=== PATIENT | male | born 1945 | race African-American/Black ===

== ENCOUNTER → 2017-03-29 | Outpatient (CLI) | payer OTHER ==
[~2017-03-29] MED LIST: CENTRUM SILVER1 EAC2 PO; CHLOROPHYLL 3 MG3 MG PO; CRESTOR10 MG PO; LIDODERM 5%1 PATC1 TRANSDERM; LOSARTAN-HCTZ1 EAC1 PO; NORCO 5-325 TA1 EACH PO
[2017-03-29 14:16] LABS: CALCIUM 8.9 mg/dL (8.5-10.1); CREATININE 1.4 mg/dL (0.7-1.3); POTASSIUM 3.7 mmol/L (3.5-5.1)
== END ==
LOC: CAT 13:46 → LABMALL 13:46
PROVIDERS: Internal Medicine Cardiovascular Disease
DX: I71.4 Abdominal aortic aneurysm, without rupture (principal); I71.2 Thoracic aortic aneurysm, without rupture; I74.5 Embolism and thrombosis of iliac artery; Z95.820 Peripheral vascular angioplasty status with implants and grafts

== ENCOUNTER → 2019-12-03 | Outpatient (CLI) | payer OTHER | LOC: SJCVC 15:04 | DX: I11.9 Hypertensive heart disease without heart failure (principal); I71.4 Abdominal aortic aneurysm, without rupture; I73.9 Peripheral vascular disease, unspecified; I71.2 Thoracic aortic aneurysm, without rupture; Z98.890 Other specified postprocedural states; Z96.651 Presence of right artificial knee joint; Z95.5 Presence of coronary angioplasty implant and graft; Z79.899 Other long term (current) drug therapy; Z86.79 Personal history of other diseases of the circulatory system ==

== ENCOUNTER → 2020-07-19 | Outpatient (CLI) | payer OTHER | LOC: SJCVC 10:48 | PROVIDERS: ATTEND Internal Medicine Cardiovascular Disease | DX: R94.31 Abnormal electrocardiogram [ECG] [EKG] (principal); I10 Essential (primary) hypertension; I25.10 Atherosclerotic heart disease of native coronary artery without angina pectoris; E78.00 Pure hypercholesterolemia, unspecified; I73.9 Peripheral vascular disease, unspecified; I71.4 Abdominal aortic aneurysm, without rupture; I71.2 Thoracic aortic aneurysm, without rupture; Z01.810 Encounter for preprocedural cardiovascular examination; Z98.890 Other specified postprocedural states; Z86.79 Personal history of other diseases of the circulatory system; Z79.899 Other long term (current) drug therapy ==

== ENCOUNTER → 2020-08-12 | Outpatient (CLI) | payer OTHER | LOC: SJCVCIMAG 07:02 | PROVIDERS: ATTEND Internal Medicine Cardiovascular Disease | DX: Z01.810 Encounter for preprocedural cardiovascular examination (principal); I25.10 Atherosclerotic heart disease of native coronary artery without angina pectoris; I10 Essential (primary) hypertension; E78.00 Pure hypercholesterolemia, unspecified; Z98.890 Other specified postprocedural states; Z79.899 Other long term (current) drug therapy; Z86.79 Personal history of other diseases of the circulatory system ==

== ENCOUNTER → 2021-03-29 | Outpatient (CLI) | payer OTHER ==
[~2021-03-29] MED LIST changes: +ASA81BEC PO; +CETIRIZINE HCL10 MG PO; +FLUTICASONE PRO16 GM NASAL; +OLMESARTAN MEDOX5 MG PO; +SINGULAIR 10 MG10 M1 PO
[2021-03-29 09:54] LABS: URINE BILIRUBIN NEGATIVE (Negative); URINE BLOOD NEGATIVE (Negative); URINE CLARITY CLEAR; URINE COLOR YELLOW; URINE GLUCOSE-RANDOM* NEGATIVE (Negative); URINE KETONES 1+ (Negative); URINE LEUKOCYTES-REFLEX NEGATIVE (Negative); URINE NITRITE-REFLEX NEGATIVE (Negative); URINE PROTEIN (DIPSTICK) NEGATIVE (Negative); URINE SPECIFIC GRAVITY 1.015 (1.005-1.035); URINE UROBILINOGEN 0.2 E.U./dl (0.2-1.0)
[2021-03-29 09:56] LABS: HEMATOCRIT 40.1 % (42.0-52.0); HEMOGLOBIN 13.2 gm/dL (14.0-18.0); MCH 32.7 pg (26.0-34.0); MCV 99.1 fL (80.0-100.0); RBC 4.05 mil/uL (4.50-6.00); RDW 13.9 % (10.5-14.5)
[2021-03-29 10:09] LABS: ALBUMIN 3.7 g/dL (3.4-5.0); CALCIUM 8.4 mg/dL (8.5-10.1); CREATININE 1.3 mg/dL (0.7-1.3); INR 1.04; POTASSIUM 4.5 mmol/L (3.5-5.1); PROTIME 11.3 Seconds (10.5-12.1)
== END ==
LOC: PAC 08:35
PROVIDERS: ATTEND Orthopaedic Surgery
DX: Z01.812 Encounter for preprocedural laboratory examination (principal); Z96.651 Presence of right artificial knee joint

== ENCOUNTER 2021-04-06 10:31 | Inpatient (IN) | payer OTHER ==
[~2021-04-06] VITALS: Ht 182.9 cm; Wt 77.6 kg
[2021-04-06 11:31] VITALS: BP 147/78
--- NOTE | 2021-04-06 17:50 | NUR ---
ASSUMED CARE OF PT AT 1630 THIS AFTERNOON FROM PACU AFTER REPAIR OF RIGHT KNEE. PT HAS DECLAN DRESSING WITH AARON WRAP AND POLAR PK. PT IS A/OX4 WITH NO DEFECITS. SKIN INTACT W/D/ATR, NO TENTING, CR<3SECX4, PT HAS NERVE BLOCK IN PLACE AND WILL NEED TO ASK FOR ASST TO USE THE BEDSIDE COMODE. IV, LEFT FA SL. ASSESSMENTS CHARTED AND OTHERWISE UNREMARKABLE. CALL LIGHT AND OTHER NEEDS ARE WITHIN REACH. MEDS AND TX GIVEN NEEDED AND SCHEDULED.
[2021-04-06 19:31] VITALS: BP 160/82
[2021-04-07 04:18] VITALS: BP 140/74
--- NOTE | 2021-04-07 05:50 | NUR ---
RECEIVED CARE OF THIS PATIENT AT 1900. PATIENT ALERT AND ORIENTED X4. PATIENT REMAINS IN BED, EXPLAINED TO PATIENT ABOUT HOW HIS LEG COULD GIVE AND HE WOIULD END UP ON THE FLOOR D/O THE BLOCK HE RECEIVED DURING SURGERY. IV IN LFA PATENT WITH FLUIDS INFUSING. DRESSING ON R KNEE INTACT. PATIENT ALSO HAS TEDS, SCD'S AND POLAR ICE. C/O PAIN, MED GIVEN. SLEPT OFF AND ON DURING NIGHT.
[2021-04-07 07:38] VITALS: BP 133/66
[2021-04-07 11:08] VITALS: BP 133/66
--- NOTE | 2021-04-07 11:15 | NUR ---
ASSUMED PT CARE THIS AM. PT IS ALERT & ORIENTED X4. PT HAS IV SITE ON L FA. PT TOLERATED DIET AND MEDICATION WELL DURING THE SHIFT. PT IS ON ROOM AIR. PT HAS DECLAN DRESSING, BILATERAL THIGH HIGH KIRBY H[employer]ES. SCD AND POLAR CARE. NO C/O OF NAUSEA AND VOMITING THIS AM. PT DID WELL WITH PHYSICAL THERAPY THIS AM. EDUCATED AND INFORMED PT ABOUT DISCHARGE INSTRUCTION SUCH MEDICATION AND WHEN TO FOLLOW UP WITH DR. PT IS CURRENTLY SITTING ON THE CHAIR WITH ALARM ON. WILL CONTINUE TO MONITOR PT. FOLLOW POC.
--- NOTE | 2021-04-07 11:33 | O ---
[facility] [place] [address] OPERATIVE REPORT Name: JUNIOR HILL Room #: 439-P ADM IN M.R.#: [id number] Admission: 04/06/21 Attend Phys: Ruy Leary MD Discharge: Date of : 47 Report #: [id number] THIS REPORT FOR: cc: Ha Mancia MD, Logan F. MD Abraham, Scott M. MD ~ DOC #: [id number] Ruy Leary MD DATE OF SERVICE: 04/06/2021 PREOPERATIVE DIAGNOSIS: Aseptic loosening, right total knee arthroplasty. POSTOPERATIVE DIAGNOSIS: Aseptic loosening, right total knee arthroplasty. PROCEDURE: Revision right total knee arthroplasty, all components. SURGEON: Ruy Leary MD. BOX WORKER: Esther Menchaca PA-C INDICATIONS FOR BOX WORKER: Throughout the case extensive retraction, manipulation of the knee was required. This was afforded to me by my floor covering printer assistant. ANESTHESIA: LMA with adductor canal block. IMPLANTS: [employer]hew size 5 revision tibial tray with a 4 mm offset retail merchandising coordinator and a 20 x 160 stem, size 5 Revision Legion femoral component with 5 mm medial and lateral distal augments as well as a 4 mm offset retail merchandising coordinator with an 18 x 160 stem, size 18 constrained polyethylene and size 35 patella. TOURNIQUET TIME: 105 minutes.. ESTIMATED BLOOD LOSS: 50 mL. COMPLICATIONS: None. SPECIMENS: None. CONDITION UPON LEAVING OPERATING ROOM: Stable. INDICATIONS FOR PROCEDURE: The patient is a 75-year-old gentleman who underwent right total knee arthroplasty many years ago. He has had progressive pain in his knee and workup for infection was negative. X-ray showed lucency under the tibial component and bone scan confirmed likely aseptic loosening of the total knee arthroplasty. After discussion with him, he elected for revision right total knee arthroplasty. [address] [address] OPERATIVE REPORT Name: JUNIOR HILL Room #: 439-P [facility] IN [facility]#: [id number] Admission: 04/06/21 Attend Phys: Ruy Leary MD Discharge: Date of : 46 Report #: [id number] DESCRIPTION OF PROCEDURE: Risks, benefits, alternatives, complications were discussed in detail with the patient including but not limited to risk of anesthesia, risk of damage to nerves, arteries, blood vessels, risk for infection, bleeding, risk for continued knee pain, need for reoperation. Informed consent was obtained from the patient. Right knee was appropriately marked in the preoperative holding area. IV Ancef was given for preoperative antibiotics. He was brought to the operating room and placed in the supine position on the operating room table. LMA anesthesia was induced without complication. Tourniquet was placed on the right thigh. Right lower extremity was prepped and draped in normal sterile fashion. Timeout was performed properly identifying the patient and procedure as well as instrumentation. All in the operating room are in agreement. Right lower extremity was exsanguinated, tourniquet was inflated. Tourniquet time was 105 minutes. The previous scar was used and this was opened with a 10 blade through the skin. Dissection was taken down to the fascia and deep flaps were developed medially and laterally. Fresh 10-blade ____ synovial fluid were taken. Several samples of synovium were then excised sharply and sent ____ no PMNs per high power field. Polyethylene was removed from the tibial baseplate and the femoral component was dissected using osteotomes. This was removed fairly easily showing suspicion for aseptic loosening. Attention was turned to the tibial component. Tibial component was removed very easily with osteotomes and this came out clean from the cement mantle with all the cement remaining with the tibial bone itself. After this, the remaining cement was removed from the bone and the canals were subsequently reamed and was then pinned in place and tibial cleanup cut was made. Tibia was sized to a size 5. Size 5 tibial trial fit best with a 4 mm offset retail merchandising coordinator in the 3 o'clock position. After this tibia was prepared for the stem and the retail merchandising coordinator and the tibial trial was placed. Attention was turned to the femur. A cleanup cut was made with the distal femoral cutting block and the femur found best fit to be a size 5. Size 5 block was placed and anterior , 4 mm retail merchandising coordinator in the 6 o'clock position. This was placed and extension gaps were then checked and found to be loose in extension with good stability in flexion, 5 mm distal femoral wedges were placed and this balanced the knee well. The previous patellar component was then removed with the oscillating saw. A new patellar trial size 35 mm was placed. Knee was taken through range of motion, found to be stable, found to have good patellar tracking with an 18 mm polyethylene. Trial components were removed. Bony ends were thoroughly irrigated with normal saline. Final components were built on the back table and cemented in place using standard cementation techniques. While the cement cured, a periarticular injection consisting of morphine, ropivacaine, epinephrine, Toradol was placed around the knee joint capsule. After the cement cured, the tourniquet was deflated. Hemostasis was obtained with Bovie cautery. A final size 18 constrained polyethylene was placed. A gram of vancomycin was placed deep in the joint. Fascia was closed with 0 Vicryl. Skin was closed with 2-0 Vicryl, skin staple and a DECLAN dressing [facility] [address] [place] [address] OPERATIVE REPORT Name: JUNIOR HILL Room #: 439-P [facility] IN M.R.#: [id number] Admission: 04/06/21 Attend Phys: Ruy Leary MD Discharge: Date of : 47 Report #: [id number] was applied. The patient tolerated this procedure well and went to recovery room under care of anesthesia postoperatively. MD SANTOS Wagner/ANA/BE <ELECTRONICALLY SIGNED> By: Ruy Leary MD 04/07/21 1133 1437 1536 Ruy Leary MD /nt
[2021-04-07 12:39] VITALS: BP 133/66
[2021-04-07 14:59] VITALS: BP 133/66
--- NOTE | 2021-04-07 15:00 | NUR ---
Pt dc'd to home this afternoon with plans to start outpt therapy per the ortho office. He indicated he needed a rwalker for home use. Verifying Specialist spoke with the ortho PA and requested a script. Referrals faxed to [facility] to check ins and see if they could deliever to the pt's home as he wanted to leave early this afternoon. Call back rec'd from Maggie and Ade and neither take the workers comp ins plan. Verifying Specialist attempted to contact the workers comp plan and they were not able to give any providers in the [facility] area. Verifying Specialist spoke with the ortho PA and she indicated their office would contact the pt and arrange to get him one issued. Followup call made to the pt and he indicates that he was able to get an used one out of storage and it is in good shape for him to use. He has also spoken to the ortho office as well. No other needs noted. Plans for outpt therapy in the future. The pt notes this is a revision TKR surgery and he had his original injury 10 years ago.
--- NOTE | 2021-04-08 12:07 | PATH ---
[facility] [address] [place] [address] PATHOLOGY RPT PROCEDURE Name: JUNIOR HILL Room #: 439-P DIS IN M.R.#: [id number] Admission: 04/06/21 Date of : 47 Discharge: 04/07/21 Report #: [id number] Path Case #: [id number] [facility] Accession Number: [id number] . 01 Material submitted: . knee - RIGHT KNEE SYNOVIUM. Modifiers: right, SYNOVIUM . 01 Clinical history: . TOTAL KNEE REVISION PRESENCE OF RIGHT ARTIFICIAL KNEE JOINT . 02 Frozen section diagnosis: . FROZEN SECTION DIAGNOSIS: (Analisa Garcia MD) . FSA1, Right knee synovium, biopsy: - No definitive focus of acute inflammation (greater than 5 neutrophils/HPF) identified on FS slides. - Markedly cellular specimen. . These findings are discussed with Dr. Ruy Leary in OR5 at [facility] and a written report is placed in the patient's chart. . Frozen section performed at [facility], [address] [place] [address]. . . FROZEN SECTION GROSS DESCRIPTION: Specimen is received fresh from the OR labeled with the patient's name, and "right knee synovium", consists of white firm to red firm oleary fragments of tissue measuring an aggregate of 5 x 4 x 1 cm. The synovial surface where evident is shaved and submitted for frozen section as FSA1, this is subsequently submitted for permanent sections as A1. The remainder of the tissue is submitted for permanent sections only in A2-A4. (IUV:shane; 04/06/2021) IZV/QMS . 02 Diagnosis: Synovium, right knee synovium, biopsy: - Moderate chronic inflammation with giant cells and reparative changes. - Negative for increase in neutrophils within the inflammatory infiltrate. - Reactive synovial hyperplasia. (IUV/db; 04/07/2021) LBQ 04/07/2021 1554 Local . 02 Electronically signed: . Analisa Garcia MD, Pathologist [address] [place] [address] PATHOLOGY RPT PROCEDURE Name: JUNIOR HILL Room #: 439-P DIS IN M.R.#: [id number] Admission: 04/06/21 Date of : 47 Discharge: 04/07/21 Report #: [id number] Path Case #: [id number] I- [id number] . 01 Gross description: . PLEASE SEE GROSS DESCRIPTION UNDER FROZEN SECTION DIAGNOSIS. /QMS 04/06/2021 1532 Local . 02 Pathologist provided ICD-10: M65.9 . 02 CPT . 571031, 330211 Specimen Comment: A courtesy copy of this report has been sent to [phone], [phone] Specimen Comment: [phone] Specimen Comment: Report sent to / DR BEASLEY Specimen Comment: A duplicate report has been generated due to demographic updates. Performed at: [address] [facility], [place] [id number] MD Chapo Contreras MD Phone: [phone] Performed at: [address] [id number] MD Analisa Garcia MD Phone: [phone]
== END 2021-04-07 13:21 | disposition home or self-care (01) | DRG 468 ==
LOC: OR 10:31 → TBA 10:31 → OR 11:35 → 4S 16:59
PROVIDERS: ADMIT Orthopaedic Surgery; ATTEND Orthopaedic Surgery
DX: T84.032A Mechanical loosening of internal right knee prosthetic joint, initial encounter (principal); M94.262 Chondromalacia, left knee; Z96.651 Presence of right artificial knee joint; S83.282A Other tear of lateral meniscus, current injury, left knee, initial encounter; Y83.8 Other surgical procedures as the cause of abnormal reaction of the patient, or of later complication, without mention of misadventure at the time of the procedure; Y92.89 Other specified places as the place of occurrence of the external cause; Z88.8 Allergy status to other drugs, medicaments and biological substances; Z91.013 Allergy to seafood; X58.XXXA Exposure to other specified factors, initial encounter; Y93.89 Activity, other specified; Y99.8 Other external cause status
CPT/HCPCS: 10102; 50010; 50101; 50415; 50954; 51130; 51225; 51320; 52001; 52282; 53000; 53078; 56528; 57095; 57103; 57116; 57179; 57982; 57983; 57986; 58138; 58384; 58719; 58821; 58822; 58823; 62110; 62900; 64042

== ENCOUNTER → 2021-05-26 | Outpatient (CLI) | payer OTHER | LOC: SJCVCIMAG 10:42 | PROVIDERS: ATTEND Internal Medicine Cardiovascular Disease | DX: R00.0 Tachycardia, unspecified (principal); I25.10 Atherosclerotic heart disease of native coronary artery without angina pectoris; E78.5 Hyperlipidemia, unspecified; I10 Essential (primary) hypertension; I73.9 Peripheral vascular disease, unspecified; Z88.8 Allergy status to other drugs, medicaments and biological substances; Z79.82 Long term (current) use of aspirin; Z79.899 Other long term (current) drug therapy; Z86.73 Personal history of transient ischemic attack (TIA), and cerebral infarction without residual deficits ==

== ENCOUNTER → 2021-06-06 | Outpatient (CLI) | payer OTHER ==
[2021-06-06 10:48] LABS: CREATININE 1.3 mg/dL (0.7-1.3)
== END ==
LOC: CAT 09:50
PROVIDERS: ATTEND Internal Medicine Cardiovascular Disease
DX: Z01.812 Encounter for preprocedural laboratory examination (principal); I71.4 Abdominal aortic aneurysm, without rupture; I71.2 Thoracic aortic aneurysm, without rupture; I25.10 Atherosclerotic heart disease of native coronary artery without angina pectoris; N28.1 Cyst of kidney, acquired; I51.7 Cardiomegaly

== ENCOUNTER → 2021-06-15 | Outpatient (CLI) | payer OTHER | LOC: SJCVC 09:32 | PROVIDERS: ATTEND Nuclear Medicine Nuclear Cardiology | DX: I71.2 Thoracic aortic aneurysm, without rupture (principal); I71.4 Abdominal aortic aneurysm, without rupture; I25.10 Atherosclerotic heart disease of native coronary artery without angina pectoris; I73.9 Peripheral vascular disease, unspecified; I10 Essential (primary) hypertension; E78.00 Pure hypercholesterolemia, unspecified; Z79.899 Other long term (current) drug therapy; Z98.890 Other specified postprocedural states; Z86.79 Personal history of other diseases of the circulatory system; Z91.013 Allergy to seafood; Z88.8 Allergy status to other drugs, medicaments and biological substances ==

== ENCOUNTER → 2021-06-22 | Outpatient (CLI) | payer OTHER ==
[~2021-06-22] MED LIST changes: +COD LIVER OIL1 ML PO
[2021-06-22 12:07] LABS: URINE BILIRUBIN NEGATIVE (Negative); URINE BLOOD NEGATIVE (Negative); URINE CLARITY CLEAR; URINE COLOR YELLOW; URINE GLUCOSE-RANDOM* NEGATIVE (Negative); URINE KETONES NEGATIVE (Negative); URINE LEUKOCYTES-REFLEX NEGATIVE (Negative); URINE NITRITE-REFLEX NEGATIVE (Negative); URINE PROTEIN (DIPSTICK) NEGATIVE (Negative); URINE SPECIFIC GRAVITY 1.015 (1.005-1.035); URINE UROBILINOGEN 0.2 E.U./dl (0.2-1.0)
[2021-06-22 12:12] LABS: ABSOLUTE NEUTROPHILS 2.4 thou/uL (1.4-8.2); EOSINOPHILS 8.1 % (0.0-3.0); HEMATOCRIT 40.3 % (42.0-52.0); HEMOGLOBIN 13.5 gm/dL (14.0-18.0); LYMPHOCYTES 25.8 % (24.0-44.0); MCH 32.9 pg (26.0-34.0); MCHC 33.4 g/dL (28.0-37.0); MCV 98.7 fL (80.0-100.0); MONOCYTES 9.3 % (1.0-8.0); PLATELET COUNT 171 thou/uL (150-400); POLYS 55.8 % (36.0-66.0); RBC 4.08 mil/uL (4.50-6.00); RDW 14.1 % (10.5-14.5); WBC 4.4 thou/uL (4.0-11.0)
[2021-06-22 12:30] LABS: APTT 29.1 Seconds (24.5-32.8); INR 1.02; PROTIME 11.1 Seconds (10.5-12.1)
[2021-06-22 12:42] LABS: ALBUMIN 4.2 g/dL (3.4-5.0); CALCIUM 9.1 mg/dL (8.5-10.1); CREATININE 1.4 mg/dL (0.7-1.3); POTASSIUM 4.4 mmol/L (3.5-5.1); TOTAL BILIRUBIN 0.6 mg/dL (0.2-1.0); TOTAL PROTEIN 8.3 g/dL (6.4-8.2)
--- NOTE | 2021-06-22 15:54 | EKG ---
[address] [address] ELECTROCARDIOGRAM REPORT Name: JUNIOR HILL Room #: [facility]#: [id number] Admission: 06/22/21 Attend Phys: Mika Lamb MD Discharge: Date of : 47 Report #: [id number] [facility] Test Date: 2021-06-22 Test Time: 11:28:03 Pat Name: JUNIOR HILL Department: Room: Gender: Engineering Lab Technician: Todd BOWEN : 1945 Requested By: Mika Lamb Order Number: [id number] : Kd Concepcion Measurements Intervals [place] Rate: 76 P: 59 NV: 173 QRS: -14 QRSD: 99 T: 39 QT: 372 QTc: 419 Interpretive Statements Sinus rhythm Probable left atrial enlargement Anterior infarct, old Compared to ECG 07/19/2015 13:06:17 Myocardial infarct finding now present Electronically Signed On 06-22-2021 15:54:29 CDT by Kd Concepcion [email or web address] <ELECTRONICALLY SIGNED> By: Kd Concepcion MD, [facility] 06/22/21 1554 1127 27 Kd Concepcion MD, FACC /EPI
== END ==
LOC: PAC 10:45
PROVIDERS: ATTEND Surgery Vascular Surgery
DX: Z01.818 Encounter for other preprocedural examination (principal); I71.2 Thoracic aortic aneurysm, without rupture; J98.4 Other disorders of lung; Z88.8 Allergy status to other drugs, medicaments and biological substances

== ENCOUNTER 2021-07-04 08:17 | Inpatient (IN) | payer OTHER ==
[2021-07-04] VITALS (12 sets, daily range): BP systolic 102–138; BP diastolic 50–73
[~2021-07-04] VITALS: Ht 182.9 cm; Wt 74.5 kg
[2021-07-05] VITALS (8 sets, daily range): BP systolic 88–116; BP diastolic 37–55
[2021-07-05 06:41] LABS: HEMATOCRIT 31.1 % (42.0-52.0); HEMOGLOBIN 10.4 gm/dL (14.0-18.0); MCH 32.5 pg (26.0-34.0); MCHC 33.5 g/dL (28.0-37.0); MCV 97.1 fL (80.0-100.0); RBC 3.21 mil/uL (4.50-6.00); WBC 6.7 thou/uL (4.0-11.0)
[2021-07-05 06:51] LABS: CALCIUM 7.8 mg/dL (8.5-10.1); CREATININE 1.1 mg/dL (0.7-1.3); POTASSIUM 4.2 mmol/L (3.5-5.1)
--- NOTE | 2021-07-05 14:58 | O ---
[facility] [place] [address] OPERATIVE REPORT Name: JUNIOR HILL Room #: 217-P ADM IN M.R.#: [id number] Admission: 07/04/21 Attend Phys: Mika Lamb MD Discharge: Date of : 47 Report #: [id number] THIS REPORT FOR: cc: Ha Mancia MD, Logan F. MD Forman,Mika Jean Baptiste MD ~ DATE OF SERVICE: 07/04/2021 PREOPERATIVE DIAGNOSIS: Thoracic aortic aneurysm. POSTOPERATIVE DIAGNOSIS: Thoracic aortic aneurysm. OPERATION: Stent graft implant for thoracic aortic aneurysm and intraoperative arteriograms with angioplasty and covered stent placement in the right iliac artery. SURGEONS: Dr. Mika Lamb and Dr. Joseph Fraser. ANESTHESIA: General. INDICATIONS: The patient is a 75-year-old with a large mid thoracic aortic aneurysm. The patient has a long history of vascular disease with multiple previous aortic procedures. FINDINGS AND TECHNIQUE: After general anesthesia was established, an incision was made in the right groin to expose the superficial femoral artery below an old femoral-femoral bypass superficial seemed to be large enough for stent graft implant with the 22-Iranian catheter required. The 10,000 units of heparin were given. The artery was first accessed with an arterial needle followed by guidewire and a 6-Iranian catheter through the guidewire, the long J-wire was placed and with a Berenstein catheter, a Fidelina wire was then passed into the aorta. There was an area of narrowing in the right iliac where a previous aortic graft had been dilated with stents in order to place the device required today, angioplasty of this area was done first with 8 mm x 4 cm balloon and then followed by a 10 mm x 4 cm balloon. This allowed dilatation of the celiac artery and this allowed us through a femoral cutdown and over the stiff wire passed the 22-Iranian dilator and sheath up into the iliac artery nearly to the aorta. Through this sheath, the long stiff wire was passed using a Berenstein as an exchange catheter, a Lunderquist wire was then used for stabilization. Initially visceral catheter was used to identify the celiac axis. This was used [facility] [address] [address] OPERATIVE REPORT Name: JUNIOR HILL Room #: 217-P [facility] IN M.R.#: [id number] Admission: 07/04/21 Attend Phys: Mika Lamb MD Discharge: Date of : 47 Report #: [id number] to demarcate the area distally that needed to be preserved. Proximally, a marked pigtail catheter was placed and an aortogram was taken and this showed the anatomy of the thoracic aorta. It was clear that there was a large aneurysm in the mid thoracic with what appeared to be grafts proximal and distal to it. A 37 mm x 20 cm thoracic graft was then placed over the Lunderquist wire and this was deployed using the cleaning from the aortogram to preserve the celiac axis and to cover the landing zone below the aneurysm. This graft was long enough to land satisfactorily above the aneurysm with reasonable landing zone. After the graft was deployed, the trilobed balloon was used to fully dilate. When this was complete, the pigtail catheter was placed and an aortogram was taken that showed good position of the graft with no area of Endoleak. We had considered placing another graft more proximally, but this did not appear to be necessary. Prior to finishing, the right iliac was then realigned with an 11 x 79 mm VBX balloon deployed stent graft. When this was placed, an additional 11 mm balloon was used to fully dilate in all other areas, particularly at the transition zones. An arteriogram was taken that showed good position of the graft with good correction of the narrowings in the tortuous iliac artery. Satisfied with all of the pictures, the dilator was replaced in the sheath and the sheath and dilator were removed and the guidewire was removed. The superficial femoral artery was repaired with interrupted 6-0. Flow was reestablished. Protamine was given to reverse the heparin with good return to the distal circulation. Protamine was given to reverse the heparin and the wound was closed in layers when hemostasis was satisfactory. The patient was taken to the recovery area in good condition having tolerated the procedure well. It should be mentioned that prior to the procedure, a spinal CSF drainage catheter was placed by anesthesia and patency was checked intermittently through the procedure to allow us to adjust CSF pressures of neurologic change was noted after surgery. Ultimately, this did not appear to be necessary. <ELECTRONICALLY SIGNED> By: Mika Lamb MD 07/05/21 1458 20 12 Mika Lamb MD /nt
[2021-07-06 04:45] VITALS: BP 112/51
[2021-07-06 07:40] VITALS: BP 127/60
[2021-07-06 11:03] VITALS: BP 127/60
== END 2021-07-06 11:57 | disposition home or self-care (01) | DRG 221 ==
LOC: TBA 08:17 → ICU 08:17 → OR 10:48 → EDSTATUS 14:37 → PRE 14:45 → ICU 17:34 → 2N 07-05 11:39
PROVIDERS: ADMIT Surgery Vascular Surgery; ATTEND Surgery Vascular Surgery
PROC: 02VW3DZ Restriction of Thoracic Aorta, Descending with Intraluminal Device, Percutaneous Approach (ICD-10-PCS; principal; 2021-07-04)
PROC: B4141ZZ Fluoroscopy of Superior Mesenteric Artery using Low Osmolar Contrast (ICD-10-PCS; principal; 2021-07-04)
DX: I71.6 Thoracoabdominal aortic aneurysm, without rupture (principal); I25.10 Atherosclerotic heart disease of native coronary artery without angina pectoris; I73.9 Peripheral vascular disease, unspecified; E78.00 Pure hypercholesterolemia, unspecified; I10 Essential (primary) hypertension; Z96.651 Presence of right artificial knee joint; Z20.822 Contact with and (suspected) exposure to COVID-19; Z88.8 Allergy status to other drugs, medicaments and biological substances; Z91.013 Allergy to seafood; Z98.42 Cataract extraction status, left eye; Z98.41 Cataract extraction status, right eye; Z95.820 Peripheral vascular angioplasty status with implants and grafts; Z79.82 Long term (current) use of aspirin; Z79.899 Other long term (current) drug therapy
CPT/HCPCS: 10078; 10081; 10204; 47375; 48889; 50010; 50101; 50386; 50455; 52287; 54118; 56524; 56526; 56531; 56668; 56760; 57093; 62110; 62900; 65020; 65075; 65090; 70005

== ENCOUNTER → 2021-08-17 | Outpatient (CLI) | payer OTHER ==
[2021-08-17 09:27] LABS: CREATININE 1.2 mg/dL (0.7-1.3)
== END ==
LOC: CAT 08:27
PROVIDERS: ATTEND Nuclear Medicine Nuclear Cardiology
DX: Z01.812 Encounter for preprocedural laboratory examination (principal); I71.4 Abdominal aortic aneurysm, without rupture; I71.2 Thoracic aortic aneurysm, without rupture; Z95.828 Presence of other vascular implants and grafts; I25.10 Atherosclerotic heart disease of native coronary artery without angina pectoris; R59.9 Enlarged lymph nodes, unspecified